=== PATIENT | female | born 2005 | race Caucasian/White ===

== ENCOUNTER 2024-07-04 19:43 | Emergency (ER) | payer OTHER ==
[~2024-07-04] VITALS: Ht 167.6 cm; Wt 65.9 kg
[2024-07-04 21:50] VITALS: BP 116/66; PULSE 78; TEMP 98.1
== END 2024-07-04 21:50 | disposition home or self-care (01) ==
LOC: COL.ER 19:43
DX: S69.92XA Unspecified injury of left wrist, hand and finger(s), initial encounter (principal); W22.8XXA Striking against or struck by other objects, initial encounter